=== PATIENT | male | born 1990 | race Caucasian/White ===

== ENCOUNTER 2024-01-17 09:05 | Emergency (ER) | payer OTHER ==
[~2024-01-17] VITALS: Ht 172.7 cm; Wt 93.0 kg
[2024-01-17 09:05] VITALS: BP 140/65; PULSE 76; RESP 18; TEMP 98.5; O2SAT 97
[2024-01-17 09:55] VITALS: BP 122/46; PULSE 72; RESP 18; TEMP 98.5; O2SAT 97
== END 2024-01-17 09:56 | disposition home or self-care (01) ==
LOC: ER 09:05
DX: S61.211A Laceration without foreign body of left index finger without damage to nail, initial encounter (principal); X58.XXXA Exposure to other specified factors, initial encounter; Y93.89 Activity, other specified; Y92.89 Other specified places as the place of occurrence of the external cause; Y99.0 Civilian activity done for income or pay
CPT/HCPCS: 99282; 12001; A4649